=== PATIENT | male | born 1940 | race Caucasian/White ===

== ENCOUNTER 2019-01-10 16:31 | Emergency (ER) | payer SELFPAY ==
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
== END 2019-01-10 19:02 | disposition home or self-care (01) ==
LOC: ER 16:31
DX: S13.8XXA Sprain of joints and ligaments of other parts of neck, initial encounter (principal); S33.5XXA Sprain of ligaments of lumbar spine, initial encounter; M23.92 Unspecified internal derangement of left knee; S50.11XA Contusion of right forearm, initial encounter; V44.5XXA Car driver injured in collision with heavy transport vehicle or bus in traffic accident, initial encounter
CPT/HCPCS: 36415; 70450; 71260; 72125; 74177; Q9967

== ENCOUNTER 2019-07-27 12:16 | Emergency (ER) | payer SELFPAY ==
--- OUTSIDE RECORDS SUMMARY | 2019-07-27 12:18 | XMS REPORT ---
:1940 [facility] Address [address] [place] [address] [place] [id number] Care Team Providers Name Role Phone DR DIONNA DAMON Unavailable Unavailable Problems This patient has no known problems. Allergies, Adverse Reactions, Alerts This patient has no known allergies or adverse reactions. Medications This patient has no known medications. Encounters Start End Encounter Admission Attending Care Care Encounter Date/Time Date/Time Type Type Clinicians Facility Department ID 2019-04-20 2019-04-20 Outpatient C MARISA DAMON [facility] [id number] 07:55:00 12:30:00 DIONNA Results Test Description Test Time Test Comments Text Results Atomic Results Result Comments GLUCOMETER GLUCOSE- LAB USE ONLY 2019-04-20 15:02:00 Test Item Value Reference Range Comments GLUCOMETER (test code=GMG) 119 mg/dL 70-[address] HAWKMetmaribel ID: [id number]: [id number] TAE CANO GLUCOMETER GLUCOSE- LAB USE [id number] 08:59:00 Test Item Value Reference Range Comments GLUCOMETER (test code=GMG) 125 mg/dL 70-100 Meter ID: [id number]: [id number] TOM CASTELAN
--- NOTE | 2019-07-27 13:28 | ER ---
Nurse's Notes [facility] Name: Daniel White Age: 78 yrs Sex: Male : 1940 Arrival Date: 07/27/2019 Time: 12:19 Bed 15 Private MD: Diagnosis: Spontaneous ecchymoses-Left Leg Presentation: 07/27 12:25 Presenting complaint: states: "He woke up with a cramp in his leg in the middle of ss the night Tuesday, and I just noticed this morning, behind his leg is all black and blue. We just want to make sure he doesn't have a blood clot.". Transition of care: patient was not received from another setting of care. Onset of symptoms was July 23, 2019. Risk Assessment: Do you want to hurt yourself or someone else? Patient reports no desire to harm self or others. Initial Sepsis Screen: Does the patient meet any 2 criteria? No. Patient's initial sepsis screen is negative. Does the patient have a suspected source of infection? No. Patient's initial sepsis screen is negative. Care prior to arrival: None. 12:25 Method Of Arrival: Ambulatory ss 12:25 Acuity: MERLE 3 ss Historical: - Allergies: 12:26 No Known Allergies; ss - Immunization history:: Adult Immunizations up to date. - Social history:: Smoking status: Patient/guardian denies using tobacco. - Ebola Screening: : Patient denies exposure to infectious person Patient denies travel to an Ebola-affected area in the 21 days before illness onset. Screenin:31 Abuse screen: Denies threats or abuse. Denies injuries from another. Nutritional mg2 screening: No deficits noted. Tuberculosis screening: No symptoms or risk factors identified. Fall Risk None identified. Assessment: 12:32 General: Appears in no apparent distress. comfortable, Behavior is calm, cooperative. mg2 Pain: Complains of pain in left leg. Neuro: Level of Consciousness is awake, alert, obeys commands, Oriented to person, place, time, situation. Cardiovascular: Capillary refill < 3 seconds Patient's skin is warm and dry. Respiratory: Airway is patent Respiratory effort is even, unlabored, Respiratory pattern is regular, symmetrical. GI: No signs and/or symptoms were reported involving the gastrointestinal system. : No signs and/or symptoms were reported regarding the genitourinary system. EENT: No signs and/or symptoms were reported regarding the EENT system. Derm: Skin is intact, is healthy with good turgor, Skin is pink, warm \\T\\ dry. normal. Musculoskeletal: Circulation, motion, and sensation intact. Capillary refill < 3 seconds, Reports pain in left leg. 13:46 Reassessment: Patient appears in no apparent distress at this time. mg2 Vital Signs: 12:26 BP 148 / 77; Pulse 67; Resp 16; Temp 98.4(TE); Pulse Ox 95% on R/A; Weight 90.72 kg; ss Height 6 ft. 0 in. (182.88 cm); Pain 2/10; 13:46 BP 145 / 77; Pulse 70; Resp 18; Temp 98; Pulse Ox 100% on R/A; mg2 12:26 Body Mass Index 27.12 (90.72 kg, 182.88 cm) ED Course: 12:19 Patient arrived in ED. mr 12:26 Triage completed. ss 12:26 Arm band placed on right wrist. ss 12:27 Graeme Wilson FNP-C [facility] la1 12:27 Fan Santizo MD is Attending Physician. la1 12:28 Walt Lopez RN is Primary Nurse. mg2 12:32 No provider procedures requiring assistance completed. Patient did not have IV access mg2 during this emergency room visit. 13:24 Extremity Venous Uni Ltd US In Process Unspecified. EDMS 13:46 Patient has correct armband on for positive identification. Pulse ox on. NIBP on. mg2 Administered Medications: No medications were administered Outcome: 13:27 Discharge ordered by . la1 13:47 Discharged to home ambulatory, with family. mg2 13:47 Condition: stable 13:47 Discharge instructions given to patient, family, Instructed on discharge instructions, follow up and referral plans. Demonstrated understanding of instructions, follow-up care. 13:47 Patient left the ED. mg2 Signatures: Dispatcher [employer] EDVT Laila Gonzalez Juan CarlosAlina cavazos, RN RN Graeme Wilson FNP-C FNP-Cla1 Walt Lopez RN RN mg2
--- NOTE | 2019-07-27 13:29 | EDPHYS ---
Physician Documentation [facility] Name: Daniel White Age: 78 yrs Sex: Male : 1940 Arrival Date: 07/27/2019 Time: 12:19 Bed 15 Private MD: ED Physician Fan Santizo HPI: 07/27 12:41 This 78 yrs old Male presents to ER via Ambulatory with complaints of la1 Possible blood clot. 12:41 The patient presents with swelling, tenderness, bruising . The complaints affect the la1 medial aspect of left thigh. Context: The problem was sustained at an unknown site. Onset: The symptoms/episode began/occurred yesterday. Modifying factors: The symptoms are alleviated by nothing. the symptoms are aggravated by nothing. Associated signs and symptoms: Pertinent negatives calf tenderness, fever, nausea, numbness, rash, swelling, tingling, vomiting, warmth, weakness. Associated signs and symptoms: The patient has no apparent associated signs or symptoms. Severity of symptoms: At their worst the symptoms were moderate. Pt was seen by his PT and they recommend he come it to have a DVT ruled out. Historical: - Allergies: 12:26 No Known Allergies; ss - Immunization history:: Adult Immunizations up to date. - Social history:: Smoking status: Patient/guardian denies using tobacco. - Ebola Screening: : Patient denies exposure to infectious person Patient denies travel to an Ebola-affected area in the 21 days before illness onset. ROS: 12:42 Constitutional: Negative for fever, chills, and weight loss. la1 12:42 Eyes: Negative for injury, pain, redness, and discharge, ENT: Negative for injury, pain, and discharge, Neck: Negative for injury, pain, and swelling, Cardiovascular: Negative for chest pain, palpitations, and edema, Respiratory: Negative for shortness of breath, cough, wheezing, and pleuritic chest pain, Abdomen/GI: Negative for abdominal pain, nausea, vomiting, diarrhea, and constipation, Back: Negative for injury and pain. 12:42 MS/extremity: Positive for ecchymosis, swelling, of the medial aspect of left thigh. Exam: 12:42 Constitutional: This is a well developed, well nourished patient who is awake, alert, la1 and in no acute distress. Head/Face: Normocephalic, atraumatic. Eyes: Pupils equal round and reactive to light, extra-ocular motions intact. Periorbital areas with no swelling, redness, or edema. ENT: Mucous membranes moist. Neck: No Meningismus. Chest/axilla: Normal chest wall appearance and motion. Nontender with no deformity. No lesions are appreciated. Cardiovascular: Regular rate and rhythm with a normal S1 and S2. No gallops, murmurs, or rubs. Normal PMI, no JVD. No pulse deficits. Respiratory: Lungs have equal breath sounds bilaterally, clear to auscultation No rales, rhonchi or wheezes noted. No increased work of breathing, no retractions or nasal flaring. Abdomen/GI: Soft, non-tender, with normal bowel sounds. No guarding or rebound. No evidence of tenderness throughout. Back: No spinal tenderness. No costovertebral tenderness. Full range of motion. MS/ Extremity: Pulses equal, no cyanosis. Neurovascular intact. Full, normal range of motion. Vital Signs: 12:26 BP 148 / 77; Pulse 67; Resp 16; Temp 98.4(TE); Pulse Ox 95% on R/A; Weight 90.72 kg; ss Height 6 ft. 0 in. (182.88 cm); Pain 2/10; 13:46 BP 145 / 77; Pulse 70; Resp 18; Temp 98; Pulse Ox 100% on R/A; mg2 12:26 Body Mass Index 27.12 (90.72 kg, 182.88 cm) ss MDM: 12:31 Patient medically screened. la1 13:24 Data reviewed: vital signs, nurses notes, radiologic studies, and as a result, I will la1 discharge patient. Data interpreted: Pulse oximetry: on room air is 95 %. Interpretation: acceptable. Test interpretation: by ED physician or midlevel provider:. Counseling: I had a detailed discussion with the patient and/or guardian regarding: the historical points, exam findings, and any diagnostic results supporting the discharge/admit diagnosis, radiology results, the need for outpatient follow up, a family practitioner, to return to the emergency department if symptoms worsen or persist or if there are any questions or concerns that arise at home. Special discussion: Based on the patient's history, exam, and Dx evaluation, there is no indication for emergent intervention or inpatient Tx. It is understood by the patient/guardian that if the Sx's persist or worsen they need to return immediately for re-evaluation. Based on the history and exam findings, there is no indication for further emergent testing or inpatient evaluation. I discussed with the patient/guardian the need to see the primary care provider for further evaluation of the symptoms. 07/27 12:39 Order name: Extremity Venous Uni Ltd la1 Administered Medications: No medications were administered Disposition: 07/27/19 13:27 Discharged to Home. Impression: Spontaneous ecchymoses - Left Leg. - Condition is Stable. - Discharge Instructions: Hematoma, Hematoma, [id number]. - Medication Reconciliation Form, Thank You Letter form. - Follow up: Private Physician; When: 2 - 3 days; Reason: Recheck today's complaints, Re-evaluation by your physician. - Problem is new. - Symptoms are unchanged. Addendum: 07/30/2019 06:40 Co-signature as Attending Physician, Fan Santizo MD I agree with the assessment and k dr plan of care. Signatures: Dispatcher [employer] EDMS Fan Santizo MD MD [facility] Alina Houston RN RN ss Graeme Wilson, [employer]-C [employer]-Cla1 Walt Lopez RN RN mg2 Corrections: (The following items were deleted from the chart) 07/27 13:47 13:27 07/27/2019 13:27 Discharged to Home. Impression: Spontaneous ecchymoses - Left mg2 Leg. Condition is Stable. Forms are Medication Reconciliation Form, Thank You Letter, Antibiotic Education, Prescription Opioid Use. Follow up: Private Physician; When: 2 - 3 days; Reason: Recheck today's complaints, Re-evaluation by your physician. Problem is new. Symptoms are unchanged. la1
[2019-07-27 13:54] VITALS: BP 145/77; TEMP 98; O2SAT 100
--- NOTE | 2019-07-27 14:13 | RAD REPORT ---
EXAM DESCRIPTION: US - Extremity Venous Uni Ltd - 07/27/2019 1:21 pm CLINICAL HISTORY: Left leg pain and swelling COMPARISON: None. TECHNIQUE: Real-time sonographic evaluation of the left lower extremity deep venous system was perfo rmed. FINDINGS: Normal compressibility, flow augmentation, phasic flow and spontaneous flow are identified in the left lower extremity common femoral, superficial femoral, popliteal and posterior tibial vein s. No intraluminal filling defects seen. In the area of interest posterior knee there is a 5 x 3 x 1.5 centimeter popliteal fossa cyst. There is some echogenic debris in the inferior aspect which may be hemorrhagic material. No adjacent fluid or stranding to indicate acute rupture. IMPRESSION: No DVT in the left lower extremity. Approximately 5 centimeter popliteal fossa cyst. No gross evidence for cyst rupture or leakage.
== END 2019-07-27 13:47 | disposition home or self-care (01) ==
LOC: ER 12:16
DX: R23.3 Spontaneous ecchymoses (principal)
CPT/HCPCS: 93971; 99283